=== PATIENT | female | born 1950 | race Caucasian/White ===

== ENCOUNTER → 2025-02-05 | Outpatient (CLI) | payer SELFPAY, OTHER ==
--- NOTE | 2025-02-05 08:25 | ECHOD_ITS ---
Reason For Study Reason For Study: EVALUATE MR Procedure This was a 2D Doppler, Color Flow transthoracic echocardiogram. Exam performed in department. Left Ventricle Normal LV size. Left ventricular systolic function is normal. The left ventricular ejection fraction is 70 %. No regional wall motion abnormalities noted. Right Ventricle Normal RV size. Normal systolic function. Atria The left atrium is mildly enlarged. Normal right atrium. Mitral Valve Mild focal mitral valve calcification of the anterior leaflet. Mild (1+) eccentric mitral valve insufficiency. Tricuspid Valve Normal tricuspid valve. Aortic Valve Trisinus/trileaflet aortic valve. Mild focal aortic valve calcification. Peak aortic valve gradient 14 mmHg. Mean aortic valve gradient 8 mmHg. Mild (1+) aortic valve insufficiency. Pulmonic Valve Normal pulmonic valve. Great Vessels Normal aortic root. The pulmonary artery is normal size. Inferior vena cava collapse with respiration. Pericardium/Pleural No pericardial effusion. MMode/2D Measurements & Calculations LVIDd: 4.5 cm IVSd: 1.2 cm LVOT diam: 2.0 cm LVIDs: 2.7 cm LVPWd: 1.1 cm LVOT area: 3.2 cm2 RVDd: 3.5 cm FS: 40.1 % Ao root diam: 3.2 cm LAV(MOD-bp): 76.3 ml LVAd ap4: 31.9 cm2 LAV(MOD-bp) Indexed: 40.1 ml/m2 LVLd ap4: 8.4 cm LAV(MOD-sp2): 74.4 ml EDV(MOD-sp4): 97.5 ml LAV(MOD-sp4): 74.1 ml EDV(sp4-el): 102.6 ml LVAs ap4: 15.1 cm2 LVLs ap4: 6.6 cm ESV(MOD-sp4): 30.1 ml ESV(sp4-el): 29.1 ml EF(MOD-sp4): 69.2 % EF(sp4-el): 71.6 % SV(MOD-sp4): 67.4 ml SV(sp4-el): 73.5 ml LA A4 area: 22.5 cm2 SI(MOD-sp4): 35.5 ml/m2 LA dimension(2D): 4.3 cm RA A4 area: 11.8 cm2 Time Measurements MV dec time: 0.20 sec Doppler Measurements & Calculations MV E max liam: 81.1 cm/sec Lat Peak E' Liam: 8.4 cm/sec Med Peak E' Liam: 5.9 cm/sec MV A max liam: 82.1 cm/sec E/E' lat: 9.7 E/E' med: 13.7 MV E/A: 0.99 MV V2 max: 84.9 cm/sec Ao V2 max: 191.4 cm/sec MV max P.9 mmHg MV dec slope: 406.4 cm/sec2 Ao max P.6 mmHg MV V2 mean: 50.2 cm/sec Ao V2 mean: 136.0 cm/sec MV mean P.2 mmHg Ao mean P.4 mmHg MV V2 VTI: 26.7 cm Ao V2 VTI: 48.5 cm AV (velocity ratio): 0.69 MVA(VTI): 4.0 cm2 KIRILL(I,D): 2.2 cm2 KIRILL(V,D): 2.1 cm2 AI max liam: 522.8 cm/sec LV V1 max: 127.0 cm/sec SV(LVOT): 107.0 ml AI max P.3 mmHg LV V1 max P.5 mmHg LV V1 mean P.2 mmHg AI dec slope: 293.9 cm/sec2 LV V1 mean: 98.4 cm/sec AI P1/2t: 521.0 msec LV V1 VTI: 33.4 cm PA V2 max: 119.0 cm/sec PA V2 mean: 78.7 cm/sec ECHO/Echo Complete Interpretation Summary Normal LV size. Left ventricular systolic function is normal. The left ventricular ejection fraction is 70 %. Mild focal mitral valve calcification of the anterior leaflet. Mild (1+) eccentric mitral valve insufficiency. Ordering Physician: David Fu Referring Physician: David Fu Performed By: Heavenly Tobar RCS
== END | disposition home or self-care (01) ==
LOC: CVS 08:19
PROVIDERS: PCP Family Medicine; Referring Provider Nurse Practitioner Family; Visit Provider Nurse Practitioner Family
DX: I35.0 Nonrheumatic aortic (valve) stenosis (principal); I34.1 Nonrheumatic mitral (valve) prolapse; I10 Essential (primary) hypertension
CPT/HCPCS: 93306